=== PATIENT | male | born 1960 | race Caucasian/White ===

== ENCOUNTER → 2018-07-02 | Outpatient (CLI) | payer OTHER ==
[2014-08-27 10:53] VITALS: BP 171/97
[~2018-07-02] MED LIST: REGADENOSON 0.4 MG/5 ML DISP.SYRIN. IV ONE
--- NOTE | 2018-07-02 08:14 | CARD ---
MR#: [id number] Date of Study: 07/02/2018 Ordering Physician: BANDAR ESCOBEDO, Referring Physician: BANDAR ESCOBEDO, Tech: Ann Snyder MELY APPROVED REPORT EXAM: Two-dimensional and M-mode echocardiogram with Doppler and color Doppler. Other Information Quality : GoodHR: 74bpm Rhythm : NSR INDICATION AAA 2D DIMENSIONS RVDd2.8 (2.9-3.5cm)Left Atrium(2D)3.3 (1.6-4.0cm) IVSd1.2 (0.7-1.1cm)Aortic Root(2D)4.0 (2.0-3.7cm) LVDd5.0 (3.9-5.9cm)LVOT Diameter2.5 (1.8-2.4cm) PWd0.8 (0.7-1.1cm)LVDs2.9 (2.5-4.0cm) FS (%) 41.9 %SV86.8 ml LVEF(%)72.6 (>50%) M-Mode DIMENSIONS Left Atrium(MM)3.35 (2.5-4.0cm)Aortic Root4.09 (2.2-3.7cm) Aortic Valve AoV Peak Steven.112.9cm/sAoV VTI22.2cm AO Peak GR.5.1mmHgLVOT Peak Steven.84.0cm/s AO Mean GR.3mmHgAVA (VMAX)3.72cm2 SALEEM (VTI)4.00cm2 Mitral Valve MV E Mcxyweul30.9cm/sMV E Peak Gr.1mmHg MV DECEL [id number] A Mfyidfgw45.6cm/s MV E Mean Gr.0mmHgE/A Ratio1.3 MV A [id number] Pulmonary Valve PV Peak Nfalebqg61.2cm/s Pulmonary Vein S1 Pxrxuqlm24.0cm/sD2 Gvavjufp50.2cm/s PVa [id number] LEFT VENTRICLE The left ventricle is normal size. There is normal left ventricular wall thickness. The left ventricu lar systolic function is normal. The Ejection Fraction is 65-70%. There is normal LV segmental wall m otion. The left ventricular diastolic function and filling is normal for age. RIGHT VENTRICLE The right ventricle is normal size. There is normal right ventricular wall thickness. The right ventr icular systolic function is normal. ATRIA The left atrium size is normal. The right atrium size is normal. The interatrial septum is intact wit h no evidence for an atrial septal defect or patent foramen ovale as noted on 2-D or Doppler imaging. AORTIC VALVE The aortic valve is normal in structure and function. The aortic valve is trileaflet. Doppler and Col or Flow revealed no significant aortic regurgitation. There is no significant aortic valvular stenosi s. MITRAL VALVE The mitral valve is normal in structure and function. There is no evidence of mitral valve prolapse. There is no mitral valve stenosis. Doppler and Color-flow revealed trace mitral regurgitation. TRICUSPID VALVE The tricuspid valve is normal in structure and function. Doppler and Color Flow revealed no tricuspid valve regurgitation noted. There is no tricuspid valve prolapse or vegetation. There is no tricuspid valve stenosis. PULMONIC VALVE The pulmonary valve is normal in structure and function. Doppler and Color Flow revealed no pulmonic valvular regurgitation. There is no pulmonic valvular stenosis. GREAT VESSELS The aortic root is mildly enlarged 4.0 cm. The ascending aorta is mildly dilated. PERICARDIAL EFFUSION There is no evidence of significant pericardial effusion. Critical Notification Critical Value: No <Conclusion> The left ventricular systolic function is normal. The Ejection Fraction is 65-70%. There is normal LV segmental wall motion. Trace mitral regurgitation. The aortic root is mildly enlarged 4.0 cm. There is no evidence of significant pericardial effusion. Signed by : Sergey Stacy, Electronically Approved : 07/02/2018 08:13:59
--- NOTE | 2018-07-02 11:27 | RAD ---
MR#: [id number] Date of Study: 07/02/2018 Ordering Physician: BANDAR ESCOBEDO, Referring Physician: JANNA NELSON Tech: RT Jimbo (R) (N) APPROVED REPORT Test Type: Pharmacological Stress Nurse/Tech: Katie Brooks R.N. Test Indications: AAA, pre-op clearance Cardiac History: Hypertension Medications: See Electronic Medical Record Medical History: See Electronic Medical Record Resting ECG: NSR Resting Heart Rate: 76 bpm Resting Blood Pressure: 104/64mmHg Pretest Chest Pain: No chest pain Nurse/Tech Notes S1S2, lungs sound clear Consent: The procedure was explained to the patient in lay terms. Informed consent was witnessed. Neville eout was entered into [facility]. History and Stress Test performed by Katie Brooks R.N. Pharm. Details Pharmacologic stress testing was performed using 0.4mg per 5ml of regadenoson given intravenously ove r 7-10 seconds. Stress Symptoms Dyspnea POST EXERCISE Reason for Termination: Infusion complete Target HR: 138 Max HR: 99 bpm Max Blood Pressure: 115/64mmHg Blood Pressure response to exercise: Normal blood pressure response during stress. Chest Pain: No. Arrhythmia: No. ST Change: No. INTERPRETATION Stress EKG Conclusion: Baseline EKG showed sinus rhythm. No ischemic changes at peak stress. No arr hythmias. Imaging Protocol IMAGE PROTOCOL: Rest Tc-99m/stress Tc-99m 1 day Rest: Stress: Viability: Radiopharm.Tc99m [id number] Sestamibi Dose10.4mCi 34mCi Duration 15min. 12min. Img Date 07/02/2018 07/02/2018 Inj-Img Yray95mve. 60min. Rest Admin Site:IV - Right AntecubitalAdministrator:DELMA Gillette, ARRT (R)(N) Stress Admin Site: IV - Right AntecubitalAdministrator: Yao Thurman RT (R)(N) STRESS DATA End Diast. Vol.108.0mlAv. Heart Rate90.0bpm End Syst. Vol.28.0mlCO Index BSA0.0L/min Myocardial Mdgs325.0gEject. Bygjfeqq92.0% Stress Rates Pk. Fill Rate3.51EDV/secLVtime Pk. Fill 190.48msec Pk. Empty Rate5.28ESV/secLVtime Pk. Wccaq578.32msec 1/3 Pk. Fill1.69EDV/sec Stress Scores Regional WT0.00Summed WT0.00 Regional WM0.00Summed WM3.00 Study quality was good. Left Ventricular size was Normal at Rest and Stress. Lung uptake was . Left Ventricular ejection fraction is 74%. The rest and stress images show normal perfusion, normal contraction and thickening. LV Perf. Quant 17 Seg. SSS0.00 17 Seg. SRS2.00 17 Seg. SDS0.00 Stress Defect Extent (% LAD)0.00Rest Defect Extent (% LAD)0.00Rev. Defect Extent (% LAD)0.00 Stress Defect Extent (% LCX) 0.00Rest Defect Extent (% LCX)0.00Rev. Defect Extent (% LCX)0.00 Stress Defect Extent (% RCA)0.00Rest Defect Extent (% RCA)0.00Rev. Defect Extent (% RCA)0.00 Stress Defect Extent (% KARISHMA)0.00Rest Defect Extent (% KARISHMA)0.00Rev. Defect Extent (% KARISHMA)0.00 Conclusion 1. Regadenoson cardioisotope stress test did not show any evidence of ischemia or infarct. 2. Normal left ventricular systolic function with ejection fraction calculated at 74%. 3. Low risk for cardiac events. Signed by : Sergey Stacy, Electronically Approved : 07/02/2018 11:26:04
== END | disposition home or self-care (01) ==
LOC: ECHO 07:27
PROVIDERS: ATTEND Internal Medicine Cardiovascular Disease
DX: I71.4 Abdominal aortic aneurysm, without rupture (principal); I10 Essential (primary) hypertension
CPT/HCPCS: 78452; 93017; 93306; 96374; 96375; 96376; A9500; J2785